=== PATIENT | male | born 1995 | race African-American/Black ===

== ENCOUNTER 2020-02-18 00:32 | Emergency (ER) | payer OTHER ==
[~2020-02-18] VITALS: Ht 162.6 cm; Wt 59.0 kg
[2020-02-18 00:49] VITALS: BP 138/83
== END 2020-02-18 00:59 | disposition left against medical advice (07) ==
LOC: EDBD 00:32 → ER 00:36
DX: R56.9 Unspecified convulsions (principal); Z53.21 Procedure and treatment not carried out due to patient leaving prior to being seen by health care provider

== ENCOUNTER 2020-02-18 02:36 | Emergency (ER) | payer OTHER ==
[~2020-02-18] VITALS: Ht 177.8 cm; Wt 79.4 kg
[2020-02-18 02:45] VITALS: BP 118/72
[2020-02-18 04:18] LABS: Urine Bacteria NONE SEEN /hpf (None Seen); Urine Blood 2+ /uL (Negative); Urine Hyaline Cast FEW /lpf (0 - 2); Urine Mucus FEW (None Seen); Urine Specific Gravity 1.018 (1.001-1.035); Urine WBC 1 /hpf (0 - 3)
[2020-02-18] MEDS ORDERED: LORazepam 2MG/ML-1ML VIAL ONE (04:22)
[2020-02-18 04:31] LABS: Alcohol, Urine < 3.0 mg/dL (0-10); Amphetamine Screen, Urine NEGATIVE (NEGATIVE); Barbiturate Scree,Urine NEGATIVE (NEGATIVE); Benzodiazephine Screen, Urine NEGATIVE (NEGATIVE); Cannabinoid Screen, Urine POSITIVE (NEGATIVE); Cocaine Screen, Urine POSITIVE (NEGATIVE); Phencyclidine Screen, Urine NEGATIVE (NEGATIVE)
[2020-02-18 04:43] LABS: Opiate Scree,Urine NEGATIVE (NEGATIVE)
[2020-02-18] MEDS ORDERED: LORazepam 2MG/ML-1ML VIAL IV ONE (04:45)
[2020-02-18 05:05] LABS: Basophils # (auto) 0 10 ^3/uL (0-0.2); Basophils % (auto) 0.4 % (0.0-2.0); Eosinophils # (auto) 0 10 ^3/uL (0-0.8); Eosinophils % (auto) 0.3 % (0.0-7.0); Hematocrit 45.9 % (41.0-53.0); Hemoglobin 15.8 g/dL (13.5-17.5); Lymphocytes # (auto) 0.3 10 ^3/uL (0.4-5.4); Lymphocytes % (auto) 2.8 % (10.0-50.0); Mean Corpuscular Hemoglobin 32.3 pg (28.0-32.0); Mean Corpuscular Hgb Conc. 34.4 g/dL (32.0-36.0); Mean Corpuscular Volume 93.7 fL (80.0-100.0); Monocytes # (auto) 0.4 10 ^3/uL (0-1.3); Monocytes % (auto) 3.5 % (0.0-12.0); Neutrophils # (auto) 10.2 10 ^3/uL (1.6-8.6); Platelet Count (auto) 362 10^3/uL (140-450); Red Blood Cells 4.89 10^6/uL (4.5-5.90); Red Cell Distribution Width 14.3 % (11.8-14.3); White Blood Cell 10.9 10^3/uL (4.4-10.8)
[2020-02-18 05:24] LABS: Potassium 4.2 mmol/L (3.5-5.1)
[2020-02-18 05:28] LABS: BUN/Creatinine Ratio 13.2; Bilirubin, Total 0.5 mg/dL (0.2-1.0); Total Protein 8.4 g/dL (6.4-8.2)
== END 2020-02-18 05:24 | disposition left against medical advice (07) ==
LOC: EDBD 02:36 → ER 02:38
DX: G40.409 Other generalized epilepsy and epileptic syndromes, not intractable, without status epilepticus (principal); F19.10 Other psychoactive substance abuse, uncomplicated; Z91.14 Patient's other noncompliance with medication regimen
CPT/HCPCS: 36415; 80053; 80307; 80320; 81001; 85025; 96374; 99283; J2060